=== PATIENT | male | born 1955 | race Caucasian/White ===

== ENCOUNTER 2022-03-01 15:04 | Outpatient (CLI) | payer BC | END 2022-03-01 15:05 | disposition home or self-care (01) | LOC: BICCT 15:04 | PROVIDERS: ATTEND Internal Medicine Hematology & Oncology | DX: R22.1 Localized swelling, mass and lump, neck (principal); D72.818 Other decreased white blood cell count; D53.9 Nutritional anemia, unspecified; D69.59 Other secondary thrombocytopenia; C01 Malignant neoplasm of base of tongue; C10.1 Malignant neoplasm of anterior surface of epiglottis; C10.0 Malignant neoplasm of vallecula; C77.0 Secondary and unspecified malignant neoplasm of lymph nodes of head, face and neck; E04.1 Nontoxic single thyroid nodule | CPT/HCPCS: 70490 ==

== ENCOUNTER 2022-03-08 11:45 | Outpatient (CLI) | payer BC | END 2022-03-08 11:46 | disposition home or self-care (01) | LOC: PET 11:45 | PROVIDERS: ATTEND Internal Medicine Hematology & Oncology | DX: C76.0 Malignant neoplasm of head, face and neck (principal); D69.59 Other secondary thrombocytopenia; D72.818 Other decreased white blood cell count; D53.9 Nutritional anemia, unspecified; R22.1 Localized swelling, mass and lump, neck; K14.8 Other diseases of tongue; R59.0 Localized enlarged lymph nodes | CPT/HCPCS: 78815; A9552 ==

== ENCOUNTER 2022-03-29 22:28 | Emergency (ER) | payer BC ==
[2022-03-29 23:17] LABS: Hemoglobin 12.7 g/dL (14.0-18.0); Mean Corpuscular Hemoglobin 32.2 pg (27.0-31.0); Mean Corpuscular Volume 94.7 fl (78.0-98.0); RBC Distribution Width 12.5 % (11.5-14.5); Red Blood Cell (RBC) Count 3.95 mill/uL (4.70-6.10); White Blood Cell (WBC) Count 7.1 thou/uL (4.8-10.8)
[2022-03-29 23:33] LABS: ALT (SGPT) 37 U/L (8-55); AST (SGOT) 39 U/L (5-34); Albumin 3.3 g/dL (3.4-4.8); Alkaline Phosphatase 164 U/L (40-110); Anion Gap 11 mmol/L (10-20); BUN (Urea Nitrogen) 18 mg/dL (8.4-25.7); Calc. Creatinine Clearance 0 mL/min (70-130); Calcium 8.2 mg/dL (7.8-10.44); Carbon Dioxide 24 mmol/L (23-31); Chloride 106 mmol/L (98-107); Estimated GFR 80; Globulin 2.8 g/dL (2.4-3.5); Glucose 181 mg/dL (80-115); Potassium 4.1 mmol/L (3.5-5.1); Protein, Total 6.1 g/dL (5.8-8.1); Sodium 137 mmol/L (136-145)
[2022-03-29] MEDS ORDERED: Oxymetazoline HCl 0.05% (30 ML BOT) ONE (23:43)
[2022-03-29] MEDS ORDERED: Tranexamic Acid 1,000 MG/10 ML VIAL ONE (23:46)
[2022-03-29 23:52] LABS: INR-International Normal Ratio 1.4; PTT 34.9 sec (22.9-36.1); Prothrombin Time 17.3 sec (12.0-14.7)
[2022-03-30 00:10] LABS: #Lymphocytes 0.9 thou/uL (1.20-3.40); #Monocytes 0.4 thou/uL (0.11-0.59); #Neutrophils 5.7 thou/uL (1.40-6.50); %Basophils 0.4 % (0.0-1.0); %Eosinophils 0.6 % (0.0-10.0); %Lymphocytes 12.6 % (21.0-51.0); %Monocytes 6.2 % (0.0-10.0); %Neutrophils 80.3 % (42.0-75.0); Mean Platelet Volume 9.3 fL (7.4-10.4); Platelet Count 57 thou/uL (130-400)
[2022-03-30 00:11] LABS: Platelet Morphology Comment Appears Decreased
[2022-03-30] MEDS ORDERED: Tranexamic Acid 1,000 MG/10 ML VIAL ONE (01:36)
[2022-03-30] MEDS ORDERED: Silver Nitrate Application 1 EACH ONE ×2 (01:50→01:51)
== END 2022-03-30 02:44 | disposition home or self-care (01) ==
LOC: ERS 22:28
DX: R04.1 Hemorrhage from throat (principal); R04.0 Epistaxis
CPT/HCPCS: 36415; 80053; 85025; 85610; 85730; 86850; 86900; 86901; 96374

== ENCOUNTER 2022-05-14 11:02 | Day surgery (SDC) | payer BC ==
[2022-05-14] MEDS ORDERED: Acetaminophen 500 MG TAB ONE (12:01)
[2022-05-14] MEDS ORDERED: diphenhydrAMINE 25 MG CAP ONE (12:01)
[2022-05-14 12:50] VITALS: TEMP 99.1
[2022-05-14 13:38] VITALS: BP 132/72
== END 2022-05-14 13:44 | disposition home or self-care (01) ==
LOC: ONC/OP 11:02
PROVIDERS: ATTEND Internal Medicine Hematology & Oncology
PROC: 30233R1 Transfusion of Nonautologous Platelets into Peripheral Vein, Percutaneous Approach (ICD-10-PCS; principal; 2022-05-14)
DX: D69.6 Thrombocytopenia, unspecified (principal); D64.9 Anemia, unspecified
CPT/HCPCS: 36430; 86850; 86900; 86901; P9035

== ENCOUNTER 2022-06-25 08:34 | Outpatient (CLI) | payer BC | END 2022-06-25 08:35 | disposition home or self-care (01) | LOC: RAD 08:34 | PROVIDERS: ATTEND Radiology Radiation Oncology | DX: R13.10 Dysphagia, unspecified (principal); R63.30 Feeding difficulties, unspecified | CPT/HCPCS: 74230 ==

== ENCOUNTER → 2022-08-21 | Outpatient (CLI) | payer BC | LOC: PET 08:45 | PROVIDERS: ATTEND Internal Medicine Hematology & Oncology | DX: C01 Malignant neoplasm of base of tongue (principal) | CPT/HCPCS: 78815; A9552 ==

== ENCOUNTER 2024-03-18 09:02 | Outpatient (CLI) | payer BC | END 2024-03-18 09:03 | disposition home or self-care (01) | LOC: ULT 09:02 | PROVIDERS: ATTEND Internal Medicine Hematology & Oncology | DX: E04.1 Nontoxic single thyroid nodule (principal) | CPT/HCPCS: 76536 ==